=== PATIENT | female | born 1970 | race Caucasian/White ===

== ENCOUNTER 2022-07-03 17:00 | Emergency (ER) | payer OTHER ==
[~2022-07-03] VITALS: Ht 157.5 cm; Wt 45.4 kg
--- NOTE | 2022-07-03 17:13 | NUR ---
at bedside for evaluation.
[2022-07-03] MEDS ORDERED: FAMOTIDINE. 20 MG/2 ML VIAL IV ONE ×2 (17:15→17:30)
[2022-07-03] MEDS ORDERED: KETOROLAC TROMETHAMINE 15 MG INJ IVP ONE (17:15)
[2022-07-03] MEDS ORDERED: IV NORMAL SALINE 1000 ML BAG IV ONE (17:15)
[2022-07-03] MEDS ORDERED: ONDANSETRON 4 MG/2 ML VIAL IV ONE (17:15)
[2022-07-03] MEDS ORDERED: KETOROLAC TROMETHAMINE 30 MG INJ ONE ×2 (17:30→18:00)
[2022-07-03] MEDS ORDERED: ONDANSETRON 4 MG/2 ML VIAL ONE (17:30)
[2022-07-03 17:32] LABS: *BILIRUBIN,URIN NEGATIVE (NEGATIVE); *BLOOD, URINE NEGATIVE (NEGATIVE); *CLARITY,URINE CLEAR (CLEAR); *COLOR,URINE Brown (YELLOW); *KETONES,URINE NEGATIVE (NEGATIVE); *UROBILINOGEN,URINE 0.2 E.U./dl (NORMAL); HEMATOCRIT 41.9 % (31.2-41.9); LEUKOCYTE ESTERASE ,URINE NEGATIVE (NEGATIVE); MEAN CORPUSCULAR HEMOGLOBIN 28.5 uug (24.7-32.8); MEAN CORPUSCULAR VOLUME 84.9 fL (75.5-95.3); NITRITE, URINE NEGATIVE (NEGATIVE); PH,URINE 7.5 (5.0-8.0); PLATELET COUNT (AUTO) 290 K/uL (179-408); UGLUCOSE NEGATIVE (NEGATIVE)
[2022-07-03 17:38] LABS: CREATININE 0.9 mg/dL (0.6-1.3); POTASSIUM 4.1 mmol/L (3.5-5.1)
[2022-07-03 17:44] LABS: BILIRUBIN,DIRECT 0.1 mg/dL (0.0-0.2); BILIRUBIN,TOTAL 0.5 mg/dL (0.2-1.0); TOTAL PROTEIN, SERUM 9.7 g/dL (6.4-8.2)
[2022-07-03] MEDS ORDERED: KETOROLAC TROMETHAMINE 30 MG INJ IVP ONE (18:00)
--- NOTE | 2022-07-03 18:04 | NUR ---
Patient taken for CT scan.
[2022-07-03 18:05] LABS: *URINE HCG, QUAL NEG (NEGATIVE)
[2022-07-03] MEDS ORDERED: PHEN16.234 PO (18:21)
[2022-07-03] MEDS ORDERED: ONDA4TAB11 PO (18:21)
--- NOTE | 2022-07-03 22:45 | NUR ---
Patient discharged to home in stable condition. Written and verbal after care instructions given. Patient verbalizes understanding of instructions. Stressed follow up or return to ER for worsening s/s. Patient walked with a steady gait. No acute signs of distress noted. Verbal and written instructions given along with labs. IV DC.
[2022-07-03 22:48] VITALS: BP 115/78
== END 2022-07-03 22:45 | disposition home or self-care (01) ==
LOC: ER 17:00
DX: R10.10 Upper abdominal pain, unspecified (principal); K58.9 Irritable bowel syndrome, unspecified
CPT/HCPCS: 99285; 74176; 96374; 96361; 76705; 96375; 80076; 80048; 81003; 84703; 83690; 85025; 84702; 36415; J3490; J1885 ×2; J2405; J7040 ×2; A4663

== ENCOUNTER 2024-04-20 20:37 | Emergency (ER) | payer OTHER ==
[~2024-04-20] VITALS: Ht 157.5 cm; Wt 49.0 kg
[~2024-04-20 20:37] MED LIST: ONDA4TAB11 PO; PHEN16.234 PO
[2024-04-20 21:24] LABS: BASOPHILS % (AUTO) 0.5 % (0.0-2.0); EOSINOPHILS # (AUTO) 0.1 K/uL (0.0-0.7); EOSINOPHILS % (AUTO) 1.2 % (0.0-7.0); HEMATOCRIT 38.8 % (31.2-41.9); LYMPHOCYTES # (AUTO) 2.2 K/uL (0.8-4.8); LYMPHOCYTES % (AUTO) 22.5 % (20.5-51.5); MEAN CORPUSCULAR HEMOGLOBIN 28.5 uug (24.7-32.8); MEAN CORPUSCULAR HGB CONC 34 g/dL (32.3-35.6); MEAN CORPUSCULAR VOLUME 84.6 fL (75.5-95.3); MONOCYTES # (AUTO) 0.6 K/uL (0.1-1.30); MONOCYTES % (AUTO) 6.3 % (0.0-11.0); NEUTROPHILS # (AUTO) 6.8 K/uL (1.8-8.9); NEUTROPHILS % (AUTO) 69.5 % (38.5-71.5); PLATELET COUNT (AUTO) 274 K/uL (179-408); RED BLOOD CELL COUNT(AUTO) 4.58 MIL/uL (3.63-4.92); RED CELL DISTRIBUTION WIDTH 13.1 % (12.3-17.7); WHITE BLOOD COUNT (AUTO) 9.8 K/uL (3.8-11.8)
[2024-04-20 21:25] LABS: DIFFERENTIAL COMMENT 1
[2024-04-20 21:27] LABS: *BILIRUBIN,URIN NEGATIVE (NEGATIVE); *BLOOD, URINE NEGATIVE (NEGATIVE); *CLARITY,URINE CLEAR (CLEAR); *COLOR,URINE YELLOW (YELLOW); *KETONES,URINE NEGATIVE (NEGATIVE); *PROTEIN,URINE NEGATIVE (NEGATIVE); *UROBILINOGEN,URINE 0.2 E.U./dl (NORMAL); LEUKOCYTE ESTERASE ,URINE NEGATIVE (NEGATIVE); NITRITE, URINE NEGATIVE (NEGATIVE); UGLUCOSE NEGATIVE (NEGATIVE)
[2024-04-20 22:06] LABS: *OCCULT BLOOD STOOL NEGATIVE (NEGATIVE)
[2024-04-20 22:14] LABS: CARBON DIOXIDE 29 mmol/L (21-32); CHLORIDE 102 mmol/L (98-107); CREATININE 0.9 mg/dL (0.6-1.3); GLUCOSE 114 mg/dL (74-106); POTASSIUM 4.2 mmol/L (3.5-5.1); SODIUM SERUM 142 mmol/L (136-145); UREA NITROGEN, BLOOD 17 mg/dL (7-18)
[2024-04-20 22:23] LABS: ALANINE AMINOTRANSFERASE 38 U/L (14-59); ALBUMIN 4.2 g/dL (3.4-5.0); ALKALINE PHOSPHATASE 105 U/L (50-136); ASPARTATE AMINOTRANSFERASE 19 U/L (15-37); BILIRUBIN,DIRECT 0.1 mg/dL (0.0-0.2); BILIRUBIN,TOTAL 0.3 mg/dL (0.2-1.0); LIPASE 58 U/L (16-77); TOTAL PROTEIN, SERUM 8.8 g/dL (6.4-8.2)
[2024-04-20] MEDS ORDERED: IOHEXOL 300MG/ML 100 ML INFUS..BTL ONE (22:32)
[2024-04-20] MEDS ORDERED: IV NORMAL SALINE 250 ML IV ONE (22:32)
[2024-04-20] MEDS ORDERED: SWABABLE VALVE TRANSFER SET EA MC ONE (22:32)
[2024-04-20] MEDS ORDERED: HYDR7CRE RC (23:48)
[2024-04-21 00:05] VITALS: BP 132/74; O2SAT 98
== END 2024-04-21 00:06 | disposition home or self-care (01) ==
LOC: ER 20:38
DX: K64.4 Residual hemorrhoidal skin tags (principal); K62.89 Other specified diseases of anus and rectum; G89.29 Other chronic pain; R10.12 Left upper quadrant pain; Z79.899 Other long term (current) drug therapy
CPT/HCPCS: 99285; 74177; 82270; 80076; 80048; 81003; 83690; 85025; 85730; 84484; 36415; Q9967; A4606; A4663

== ENCOUNTER 2025-04-18 08:26 | Emergency (ER) | payer OTHER ==
[~2025-04-18] VITALS: Ht 157.5 cm; Wt 48.5 kg
[~2025-04-18 08:26] MED LIST changes: +HYDR7CRE RC
[2025-04-18] MEDS ORDERED: DICY20TA11 PO (08:52)
[2025-04-18] MEDS ORDERED: LOVA20TA2 PO (08:52)
[2025-04-18] MEDS ORDERED: ASPI81TA31 PO (08:52)
[2025-04-18 11:18] LABS: BASOPHILS % (AUTO) 0.3 % (0.0-2.0); EOSINOPHILS # (AUTO) 0.1 K/uL (0.0-0.7); HEMATOCRIT 37.4 % (31.2-41.9); HEMOGLOBIN 12.5 g/dL (10.9-14.3); LYMPHOCYTES # (AUTO) 1.6 K/uL (0.8-4.8); LYMPHOCYTES % (AUTO) 29.3 % (20.5-51.5); MEAN CORPUSCULAR HEMOGLOBIN 28.6 uug (24.7-32.8); MEAN CORPUSCULAR HGB CONC 33 g/dL (32.3-35.6); MEAN CORPUSCULAR VOLUME 85.5 fL (75.5-95.3); MONOCYTES # (AUTO) 0.4 K/uL (0.1-1.30); MONOCYTES % (AUTO) 8.2 % (0.0-11.0); NEUTROPHILS # (AUTO) 3.3 K/uL (1.8-8.9); NEUTROPHILS % (AUTO) 60.2 % (38.5-71.5); PLATELET COUNT (AUTO) 233 K/uL (179-408); RED BLOOD CELL COUNT(AUTO) 4.37 MIL/uL (3.63-4.92); RED CELL DISTRIBUTION WIDTH 12.9 % (12.3-17.7); WHITE BLOOD COUNT (AUTO) 5.5 K/uL (3.8-11.8)
[2025-04-18] MEDS ORDERED: IV NORMAL SALINE 250 ML IV ONE (11:27)
[2025-04-18] MEDS ORDERED: SWABABLE VALVE TRANSFER SET EA MC ONE (11:27)
[2025-04-18] MEDS ORDERED: IOHEXOL 300MG/ML 100 ML INFUS..BTL ONE (11:27)
[2025-04-18 11:42] LABS: DIFFERENTIAL COMMENT 1
[2025-04-18 11:55] LABS: BILIRUBIN,DIRECT 0.1 mg/dL (0.0-0.2); BILIRUBIN,TOTAL 0.3 mg/dL (0.2-1.0); CALCIUM 8.9 mg/dL (8.5-10.1); CREATININE 0.8 mg/dL (0.6-1.3); POTASSIUM 4.2 mmol/L (3.5-5.1); TOTAL PROTEIN, SERUM 7.9 g/dL (6.4-8.2)
[2025-04-18] MEDS ORDERED: IBUP-1957 PO (14:47)
[2025-04-18 15:13] VITALS: BP 106/61; O2SAT 99
== END 2025-04-18 15:14 | disposition home or self-care (01) ==
LOC: ER 08:26
DX: R22.41 Localized swelling, mass and lump, right lower limb (principal); G89.29 Other chronic pain; R10.30 Lower abdominal pain, unspecified; Z79.899 Other long term (current) drug therapy
CPT/HCPCS: 99285; 73701; 80076; 80048; 85025; 85651; 85730; 36415; 73551; 74176; 93005; Q9967; A4606; A4663